=== PATIENT | female | born 1985 ===

== ENCOUNTER 2017-12-14 10:58 | Emergency (ER) | payer OTHER ==
[2017-12-14] MEDS ORDERED: Dextrose 5%/0.45% NS 1,000 ML IV SCH ×2 (11:30→12:30)
[2017-12-14 11:38] LABS: SQUAMOUS EPITHIAL 11 /hpf (0-5); URINE BACTERIA RARE (<OCC); URINE BILIRUBIN NEGATIVE (NEGATIVE); URINE BLOOD NEGATIVE (NEGATIVE); URINE CLARITY Hazy (Clear); URINE COLOR Yellow (YELLOW); URINE GLUCOSE (UA) NORMAL (Normal); URINE LEUKOCYTE ESTERASE NEG Leu/uL (Negative); URINE NITRATE NEGATIVE (NEGATIVE); URINE PROTEIN 1+ mg/dL (NEGATIVE); URINE UROBILINOGEN NORMAL mg/dL (0.2-1.0)
[2017-12-14 12:12] LABS: BASO % 0.2 % (0.0-2.0); EOS # 0.1 K/uL (0.0-0.7); EOS % 0.5 % (0.0-4.0); HEMOGLOBIN 11.3 g/dL (11.0-16.0); LYMPH # 0.7 K/uL (1.0-4.3); MEAN CORPUSCULAR HEMOGLOBIN 32.1 pg (27.0-31.0); MEAN CORPUSCULAR HGB CONC 34.6 g/dL (33.0-37.0); MEAN PLATELET VOLUME 8.8 fL (7.2-11.7); MONO # 0.4 K/uL (0.0-0.8); NEUT # 9.1 K/uL (1.8-7.0); NEUT % 88.3 % (50.0-75.0); PLATELET COUNT 219 K/uL (130-400); RBC 3.54 Mil/uL (3.80-5.20); RED CELL DISTRIBUTION WIDTH 13.1 % (11.5-14.5); WHITE BLOOD COUNT 10.3 K/uL (4.8-10.8)
[2017-12-14 12:17] LABS: ALBUMIN 3.4 g/dL (3.5-5.0); ALT/SGPT 25 U/L (9-52); AST/SGOT 24 U/L (14-36); BLOOD UREA NITROGEN 11 mg/dL (7-17); CALCIUM 7.8 mg/dl (8.6-10.4); GFR AFRICAN-AMERICAN > 60; GFR NON-AFRICAN AMERICAN > 60
[2017-12-14 12:20] LABS: ALB/GLOB RATIO 1.1 (1.0-2.1); MEAN CELL VOLUME 92.7 fL (81.0-99.0)
[2017-12-14] MEDS ORDERED: Dextrose 5%/0.9% NS 1,000 ML IV ONE (12:31)
[2017-12-14 12:53] LABS: BANDS 6 % (0-2); LYMPHOCYTE 5 % (20-40); MONOCYTE 7 % (0-10); NEUTROPHIL 82 % (50-75); PLATELET ESTIMATE NORMAL (NORMAL); TOTAL CELLS COUNTED 100
[2017-12-14] MEDS ORDERED: Lactated Ringer's 1,000 ML IV ONE (13:32)
--- NOTE | 2017-12-14 15:39 | OBHP ---
Datetime: 12/14/2017 14:09 IP Adm Impression: , intrauterine IP Chief Complaint Other: Nausea, vomiting x 4 IP Admit Plan: Observation/Evaluation IP Admit Plan Other: Acute gastroenteritis Admit Comment, IP Provider: 32 y.o. , LMP 04/14/17, TODD 01/17/18, EGA 35w 1d, c/o nausea and v omiting, onset 0100 hours and lower abdominal pain, pain scale 7/10 to 8/10 - diffuse, gassy. No BM ( h/o chronic constipation). (+) AFM; denies LOF, VB, Ctx. care: [facility], Dr. oHff; last visit 1 week ago; next visit 12/26/17. Abnl GCT 154; 3hr GTT 89/124/110/108. No other issue s P Ob: C/S x 2: 2004, male, 7lb 150z, failed VANESSA. 2006, female, 8lb 7oz; both at [place]; no compli cations. VTOP x 3; Spont Ab x 1. P [employer]: 13 x monthly x 10. (+) H/O abnl Pap; S/P colpo - neg Pap since. PMH: denies PSH: C/S x 2; D_C x 3 NKDA Meds: PNV Soc Hx: h/o tobacco use: prior to , 1 ppd x 9 years; stopped in first trimester. (+) h/o marijuana use - also stopped in first trimester. Denies EtOH use. With FOB x 11 years; lives with him. Fam Hx: Mother alive 53 yo - no med issue. Father alive 51 yo - [place]. No known fam h/o cancer P.E.: as above. Mildy obese, in obvious discomfort. Awake, alert, oriented to time, person and pl [place]. Assessment: 32 y.o. P2042, 35w 1d, previous C/S x 2; probable acute gastroenteritis. Categoty 1 t racing. Clinically stable. Plan: 1) IVFs 2) CBC, CMP, U/A 3) Zofran 4) Observe Addendum: U/A - ketones 2(+) Plan: 1) continue IVFs 2) trial of p.o. Addendum: 1500 hours - Feels better. S/P zofran; drank small apple juice, no further vomiting. Denies nausea. Feels for soup Assessment: 32 y.o. P2042, 35w 1d, acute gastroenteritis - ketonuria - responded to IVFs and zofra n. D/W patietnt, small and frequent meals, bland diet x 24 - 48 hours. Category 1 tracing. Clinically stable. Plan: 1) Discharge home 2) reviewed S/S PTL 3) Keep all [place] appointments Pelvic Type - PN: Not Done Extremities - PN: Normal Abdomen - PN: Normal Back - PN: Normal Breast - PN: Not Done Lungs - PN: Normal Heart - PN: Abnormal Thyroid - PN: Not Done Neurologic - PN: Normal HEENT - PN: Normal General - PN: Normal FHR - Baseline A Provider: 150 Membranes, Provider: Intact Contraction Comments Provider: none Comments, ACOG Physical Exam: Abdomen: Gravid. Soft. Non tender in all quadrants. Fundal height 35 c m. Healed Pfannenstiel scar. All other systems reviewed and are negative Gestation - Est Wks by US: 35w 1d IP Hx Assessment: The History has been Reviewed and is Current EGA AdmitDate IP: 35.1 Vital Signs Provider: Reviewed Vital Signs Provider Details: maternal tachycardia 120bpm IP Chief Complaint: Other NICHD Variability Prov Fetus A: Moderate 6-25bpm NICHD Accel Fetus A IP Provider: [id number] FHR Category Provider Fetus A: Category I NICHD Decel Fetus A IP Provider: None Dilatation, Provider: deferred Genitourinary Exam: Not Done DTRs - PN: Not Done
[2017-12-14 22:52] VITALS: BP 109/58; PULSE 102; RESP 18; TEMP 97.1; O2SAT 99
== END 2017-12-14 15:10 | disposition home or self-care (01) ==
LOC: C.EROB 10:58
DX: O26.893 Other specified pregnancy related conditions, third trimester (principal); K52.9 Noninfective gastroenteritis and colitis, unspecified; Z3A.35 35 weeks gestation of pregnancy
CPT/HCPCS: 80053; 81001; 85025; 96361; 96374; 99283; J7042; J7120